=== PATIENT | female | born 1940 | race Caucasian/White ===

== ENCOUNTER 2016-04-21 13:28 | Inpatient (IN) | payer MEDICARE, MEDICAID ==
--- NOTE | 2016-04-21 14:39 | EDPRACDOC ---
- General Information Stated Complaint: AMS, BED SORE Time Seen by Provider: 04/21/16 13:37 Information Source: Family, Electronic Data Processing Auditor Mode of Arrival: Ambulance Home Medications: Home Medications Bisacodyl [Dulcolax] 10 mg MD DAILY PRN 07/07/14 Bisoprolol Fumarate [Zebeta] 5 mg PO QHS 07/07/14 House Supplement 1 each PO HS 07/07/14 Isosorbide Mononitrate [Imdur] 30 mg PO DAILY 07/07/14 Nitroglycerin [Nitrostat] 0.4 mg SL Q5MX3 PRN 07/07/14 Sennosides/Docusate Sodium [Senokot-S Tablet] 2 tabs PO HS 07/07/14 Ativan Solution 2mg/Ml 2 mg TOP QHS 05/16/15 Collagenase Clostridium Hist. [Santyl] 1 [place] TOP DAILY 05/16/15 Donepezil HCl [Aricept] 10 mg PO QHS 05/16/15 Fentanyl 12 mcg TOP Q72H 05/16/15 Memantine HCl [Namenda Xr] 14 mg PO QHS 05/16/15 Mirtazapine 15 mg PO QHS 05/16/15 Potassium Chloride [Klor-Con 10] 30 meq PO DAILY 05/16/15 Acetaminophen [Acephen] 650 mg MD Q4H PRN 04/21/16 Aspirin (Enteric Coated) [Ecotrin] 81 mg PO DAILY 04/21/16 Ativan Gel 0.5mg/Ml 0.5 mg TOP Q8H PRN 04/21/16 CYANOCOBALAMIN (Vitamin B-12) [Vitamin B-12] 1,000 mcg IM QMONTH 04/21/16 Divalproex Sodium [Depakote Sprinkle] 250 mg PO QHS 04/21/16 Divalproex Sodium [Depakote Sprinkle] 375 mg PO 1200 04/21/16 Ergocalciferol (Vitamin D2) [Vitamin D] 50,000 units PO QMONTH 04/21/16 Ferrous Sulfate [Iron] 325 mg PO BID 04/21/16 Hydrocodone Bit/Acetaminophen [[place] 5-325 Tablet] 1 tab PO Q6H PRN 04/21/16 Lactulose 30 ml PO DAILY PRN 04/21/16 Losartan Potassium 25 mg PO DAILY 04/21/16 Moxifloxacin HCl [Avelox] 400 mg PO DAILY 04/21/16 Propylene Glycol [Systane Balance] 1 drop OU TID 04/21/16 Risperidone Microspheres [Risperdal Consta] 25 mg IM .[id number] 04/21/16 Allergies/Adverse Reactions: Allergies Allergy/AdvReac Type Severity Reaction Status Date / Time acetaminophen Allergy Unknown Verified 09/08/14 16:18 [From Darvocet-N 100] codeine Allergy Unknown Verified 09/08/14 16:18 Iodinated Contrast Media - Allergy Unknown Verified 09/08/14 16:18 IV Dye Penicillins Allergy Unknown Verified 09/08/14 16:18 pravastatin sodium Allergy Unknown Verified 09/08/14 16:18 [From Pravachol] propoxyphene Allergy Unknown Verified 09/08/14 16:18 propoxyphene napsylate Allergy Unknown Verified 09/08/14 16:18 [From Darvocet-N 100] quinapril Allergy Unknown Verified 09/08/14 16:18 Sulfa (Sulfonamide Allergy Unknown Verified 09/08/14 16:18 Antibiotics) - History of Present Illness Onset: WEEKS HPI: PT HAS SORES ON HER FEET THAT HAVE BEEN THERE FOR "AWHILE." FAMILY SAID PT HAS BEEN RECEIVING ORAL ABX (AVELOX), BUT IT IS NOT HELPING. PT'S FAMILY REQUESTS THAT PT BE TRANSFERRED TO [facility] FOR EVAL BY HER FOOT DR. (DR. MANUEL SAVAGE). FAMILY SAID THAT PT HAS BEEN MORE CONFUSED AND COMBATIVE THAN NORMAL. Foot Problem Location: Reports: Right, Left Mechanism: Reports: Other (BED SORES) Circumstances: Reports: None ED Past Medical History - Patient Medical History Neurological History: Reports: Cerebrovascular Accident (11/2013), Dementia Cardiac History: Reports: Hypertension, Cardiac Catheterization GI/ History: Reports: Urinary Tract Infection, Gastroesophageal Reflux Musculoskeletal History: Reports: Osteoarthritis Psychological History: Reports: Depression. Denies: Substance Use Disorder Systemic History: Reports: Anemia, Diabetes Surgical History: Reports: Cardiac Catheterization, Tonsillectomy/Adnoidectomy - Family Medical History Reports: Diabetes (Father), Cancer (Mother of bone CA, Brother, Sister), Cardiac Disorders (Father). Denies: Hypertension, Stroke - Social Medical History Smoking Status: Former smoker Social History: Denies: Substance Use Disorder ETOH: None Substance Abuse: None Lives In: Residential Facility EDM Review of Systems - Review of Systems ROS Negative Except as Marked: Yes All systems reviewed and were negative except as marked Musculoskeletal: Foot Integumentary: Wound, Pressure Sore - Physical Exam Constitutional: No apparent distress, Agitated Oriented to: Not Oriented Last recorded Vital Signs: Last Vital Signs Temp 97.9 F 04/21/16 13:40 Pulse 52 L 04/21/16 13:40 Resp 18 04/21/16 13:40 BP 112/57 L 04/21/16 13:40 Pulse Ox 95 04/21/16 13:40 Oxygen Pulse Oxygen Saturation 95 O2 Device Room Air Oxygen Flow Rate Fraction of Inspired Oxygen ( FIO2) - HEENT Head: Normal ( normocephalic) Eye Exam: Normal (PERRL, EOMI, Sclera white) Oropharynx: Normal (Pharynx:Moist without exudate,Gums-no swelling) ENT EAC: Normal TMJ: Normal Nose: No Symptoms Reported (septum midline) Neck: Normal (FROM, trachea at midline) - Respiratory/Cardiovascular Respiratory: Normal - CTA Cardiovascular: Bradycardia - GI Auscultation: Normal (NABS) Palpation: Normal (Soft,No rebound or guarding, non distended) Tenderness: Non tender Hensley's Sign: Negative - Musculoskeletal Back: Normal (Non-Tender) Extremities: Normal (Normal tone, Pulses 2+ No cyanosis or edema, FROM) Musculoskeletal Comment: CONTRACTURES - Integumentary Skin: Warm, Dry, Other (SORES TO OUTSIDE OF BOTH FEET, CELLULITIS OF RIGHT FOOT WITH LYMPHANGITIS) Lymphatics: Lymphangitis - Neurologic Memory Impaired: Short-term, Long-term Motor Function: Other (PT NOT FOLLOWING COMMANDS) Mood Description: Agitated - Results 04/21/16 15:00 04/21/16 15:00 - EKG EKG #1 EKG Time: 13:42 -: Yes EKG interpreted by me Rate: bpm: 52 [place]: Normal Rhythm: SB Block: None Hypertrophy: None ST: Normal - Diagnostic Imaging Foot Image interpreted by: Radiologist Diagnostic Imaging Comments: LEFT: No evidence of osteomyelitis. RIGHT: Negative for osteomyelitis. Chest Image interpreted by: Radiologist Diagnostic Imaging Comments: 1. Mild interstitial prominence, new compared to the previous exams, suggesting some degree of edema, likely superimposed on some degree of chronic interstitial fibrosis/scarring. 2. No other significant findings. - Additional Information PT D/W [facility] AND THEY DID ACCEPT PT, BUT THEY WERE CONCERNED THAT MEDICARE WOULD NOT PAY FOR THE TRANSFER. THE PT'S FAMILY DID AGREE TO STAY HERE FOR NOW. - Departure Yes I personally saw and evaluated the patient. Disposition: Admit IP To This Hospital Condition: Fair Final Diagnosis: Bilateral cellulitis of lower leg, Hypernatremia, Lactic acidosis, Failure of outpatient treatment, WORSENING PRESSURE ULCERS BILAT FEET, Dehydration, Dementia Education/Counseling Given To: Family Member Education/Counseling Given Regarding: Diagnosis, Treatment Referrals: Rafa Spring MD [Primary Care Provider] - One Week Prescriptions: No Action Sennosides/Docusate Sodium [Senokot-S Tablet] 2 tabs PO HS Nitroglycerin [Nitrostat] 0.4 mg SL Q5MX3 PRN PRN Reason: Chest Pain Or Discomfort Isosorbide Mononitrate [Imdur] 30 mg PO DAILY Bisoprolol Fumarate [Zebeta] 5 mg PO QHS Bisacodyl [Dulcolax] 10 mg MD DAILY PRN PRN Reason: Constipation House Supplement 1 each PO HS Mirtazapine 15 mg PO QHS Memantine HCl [Namenda Xr] 14 mg PO QHS Potassium Chloride [Klor-Con 10] 30 meq PO DAILY Fentanyl 12 mcg TOP Q72H Ativan Solution 2mg/Ml 2 mg TOP QHS Donepezil HCl [Aricept] 10 mg PO QHS Collagenase Clostridium Hist. [Santyl] 1 [place] TOP DAILY Aspirin (Enteric Coated) [Ecotrin] 81 mg PO DAILY Risperidone Microspheres [Risperdal Consta] 25 mg IM .[id number] Lactulose 30 ml PO DAILY PRN PRN Reason: Constipation Ergocalciferol (Vitamin D2) [Vitamin D] 50,000 units PO QMONTH Hydrocodone Bit/Acetaminophen [[place] 5-325 Tablet] 1 tab PO Q6H PRN PRN Reason: Pain Ferrous Sulfate [Iron] 325 mg PO BID Propylene Glycol [Systane Balance] 1 drop OU TID CYANOCOBALAMIN (Vitamin B-12) [Vitamin B-12] 1,000 mcg IM QMONTH Moxifloxacin HCl [Avelox] 400 mg PO DAILY Divalproex Sodium [Depakote Sprinkle] 375 mg PO 1200 Ativan Gel 0.5mg/Ml 0.5 mg TOP Q8H PRN PRN Reason: AGITATION Losartan Potassium 25 mg PO DAILY Divalproex Sodium [Depakote Sprinkle] 250 mg PO QHS Acetaminophen [Acephen] 650 mg MD Q4H PRN PRN Reason: Mild Pain Or Fever Decision to Admit Time: 16:39 Decision to admit date: 04/21/16 Decision to admit: from ED - Physician Consulted Hospitalist Provider Called: Rafa Spring
--- NOTE | 2016-04-21 15:14 | DIRPT ---
CLINICAL DATA: Ulcers. EXAM: LEFT FOOT - COMPLETE 3+ VIEW COMPARISON: None. FINDINGS: Diffuse osteopenia limits evaluation. No fractures are seen. No bony erosion to suggest osteomyelitis. IMPRESSION: No evidence of osteomyelitis. Electronically Signed By: Casa Fonseca III, M.D On: 04/21/2016 15:12
--- NOTE | 2016-04-21 15:16 | DIRPT ---
CLINICAL DATA: Mental status change. Dementia. Right foot ulcer. EXAM: CHEST 1 VIEW COMPARISON: Chest x-rays dated 07/07/2014 and 06/11/2014. FINDINGS: Heart size is upper normal, stable. Overall cardiomediastinal silhouette is stable in size and configuration. Mildly prominent interstitial markings are now present, suggesting some degree of edema. No confluent airspace opacity to suggest developing pneumonia. No pleural effusion seen. No pneumothorax seen. IMPRESSION: 1. Mild interstitial prominence, new compared to the previous exams, suggesting some degree of edema, likely superimposed on some degree of chronic interstitial fibrosis/scarring. 2. No other significant findings. Electronically Signed By: Misbah Machado M.D. On: 04/21/2016 15:13
--- NOTE | 2016-04-21 15:20 | DIRPT ---
CLINICAL DATA: Foot infection EXAM: RIGHT FOOT COMPLETE - 3+ VIEW COMPARISON: 05/16/2015 FINDINGS: Ulcer adjacent to the fifth MTP joint. Negative for osteomyelitis or fracture. Mild degenerative change first MTP joint. Generalized osteopenia. IMPRESSION: Negative for osteomyelitis. Electronically Signed By: Bobby Roland M.D. On: 04/21/2016 15:18
[2016-04-21 15:29] LABS: AUTOMATED BASOPHIL 0.3 % (0-2); AUTOMATED EOSINOPHIL 0.1 % (0-5); AUTOMATED LYMPH 20.1 % (17-44); AUTOMATED MONOCYTE 10.9 % (3-10); AUTOMATED NEUTROPHIL 68.6 % (45-76); MPV 8.7 fL (7.4-10.4)
[2016-04-21 15:40] LABS: BLOOD UREA NITROGEN 31 MG/DL (7-17); CALCIUM 9.8 MG/DL (8.4-10.2); CALCULATED OSMOLALITY 298 MOs/Kg (270-290); CHLORIDE 110 mEq/L (98-107); GLUCOSE 119 mg/dL (70-99); PARTIAL THROMB. TIME 23.1 SEC (22-35); PT-INR 1.2; SODIUM LEVEL 151 mEq/L (137-146); TOTAL PROTEIN 7.9 G/DL (6.3-8.2)
[2016-04-21 15:41] LABS: LEUKOCYTES/URINE NEG (NEGATIVE); NITRITE/URINE NEG (NEGATIVE); URINE OCCULT BLOOD NEG (NEG/TRACE)
[2016-04-21] MEDS ORDERED: NS 1,000 ML IV ONE (16:04)
[2016-04-21] MEDS ORDERED: DEXTROSE 25 GM/50 ML PFS IV PRN (16:57)
[2016-04-21] MEDS ORDERED: GLUCAGON 1 MG VIAL SQ PRN (16:57)
[2016-04-21] MEDS ORDERED: GLUCOSE (ORAL GEL) 15 GM TUBE PO PRN (16:57)
[2016-04-21] MEDS ORDERED: HYDROCODONE 5 MG/ACETAMIN 325 MG TAB PO PRN (17:01)
[2016-04-21] MEDS ORDERED: ATIVAN TOP PRN (17:01)
[2016-04-21] MEDS ORDERED: NITROGLYCERINE 0.4 MG TAB SL PRN (17:01)
[2016-04-21] MEDS ORDERED: BISACODYL 10 MG SUPP PR PRN (17:01)
[2016-04-21] MEDS ORDERED: HALOPERIDOL 5 MG/ML VIAL IV PRN (17:10)
--- NOTE | 2016-04-21 17:18 | HISTPHYS ---
- Chief Complaint Swelling ,redness and cloudy discharge from lateral aspects of both feet - History of Present Illness 75 yowf suffering from end-stage dementia, full-time resident of senior living facility brought to to emergency room early on today for evaluation of bilateral lateral aspect of both feet ulcers with cloudy discharge warmth redness and edema and tenderness.. About a week ago patient has developed ulcers on both lateral aspects of both feet with minimal initial drainage and redness. She was started on 10 days course of antibiotic in the form of p.o. Avelox. Of note is that previous attempts to provide IV medications or IV hydration at the long term resulted in patient removing IV access almost instantly. Despite being on antibiotic for about a week there was no significant improvement in feet condition, redness and discharge have worsened. Option of inserting PICC line versus admitted to the hospital for IV antibiotics will presented to the patient family and given complicated experience with IV access patient was transferred to [facility] for further evaluation and treatment. Patient is non ambulatory and gets transfer to wheelchair and is able to propel herself around the institution. No recent falls or trauma to lower extremities. Patient remains total care dependent with all activities of daily living, despite nutritional support patient continues to lose weight. - Medical History Cardiac History: Reports: Hypertension, Cardiac Catheterization, Valvular Heart Disease Respiratory History: Reports: Pneumonia GI/ History: Reports: Renal Disease, Urinary Tract Infection, Gastroesophageal Reflux Musculoskeletal History: Reports: Osteoarthritis Systemic History: Reports: Anemia, Diabetes Neurological History: Reports: Cerebrovascular Accident (11/2013), Dementia Psychological History: Reports: Depression. Denies: Substance Use Disorder - Surgical History Reports: Cardiac Catheterization, Tonsillectomy/Adnoidectomy - Medictions/Allergies Allergies acetaminophen [From Darvocet-N 100] Allergy (Verified 09/08/14 16:18) Unknown Per [facility] codeine Allergy (Verified 09/08/14 16:18) Unknown Per [facility] Iodinated Contrast Media - IV Dye Allergy (Verified 09/08/14 16:18) Unknown Per [facility] Penicillins Allergy (Verified 09/08/14 16:18) Unknown Per [facility] pravastatin sodium [From Pravachol] Allergy (Verified 09/08/14 16:18) Unknown Per [facility] propoxyphene Allergy (Verified 09/08/14 16:18) Unknown Per [facility] propoxyphene napsylate [From Darvocet-N 100] Allergy (Verified 09/08/14 16:18) Unknown Per [facility] quinapril Allergy (Verified 09/08/14 16:18) Unknown Per [facility] Sulfa (Sulfonamide Antibiotics) Allergy (Verified 09/08/14 16:18) Unknown Per [facility] Current Medication List: Reviewed Home Medications Bisacodyl [Dulcolax] 10 mg MI DAILY PRN 07/07/14 Bisoprolol Fumarate [Zebeta] 5 mg PO QHS 07/07/14 House Supplement 1 each PO HS 07/07/14 Isosorbide Mononitrate [Imdur] 30 mg PO DAILY 07/07/14 Nitroglycerin [Nitrostat] 0.4 mg SL Q5MX3 PRN 07/07/14 Sennosides/Docusate Sodium [Senokot-S Tablet] 2 tabs PO HS 07/07/14 Ativan Solution 2mg/Ml 2 mg TOP QHS 05/16/15 Collagenase Clostridium Hist. [Santyl] 1 [place] TOP DAILY 05/16/15 Donepezil HCl [Aricept] 10 mg PO QHS 05/16/15 Fentanyl 12 mcg TOP Q72H 05/16/15 Memantine HCl [Namenda Xr] 14 mg PO QHS 05/16/15 Mirtazapine 15 mg PO QHS 05/16/15 Potassium Chloride [Klor-Con 10] 30 meq PO DAILY 05/16/15 Acetaminophen [Acephen] 650 mg MI Q4H PRN 04/21/16 Aspirin (Enteric Coated) [Ecotrin] 81 mg PO DAILY 04/21/16 Ativan Gel 0.5mg/Ml 0.5 mg TOP Q8H PRN 04/21/16 CYANOCOBALAMIN (Vitamin B-12) [Vitamin B-12] 1,000 mcg IM QMONTH 04/21/16 Divalproex Sodium [Depakote Sprinkle] 250 mg PO QHS 04/21/16 Divalproex Sodium [Depakote Sprinkle] 375 mg PO 1200 04/21/16 Ergocalciferol (Vitamin D2) [Vitamin D] 50,000 units PO QMONTH 04/21/16 Ferrous Sulfate [Iron] 325 mg PO BID 04/21/16 Hydrocodone Bit/Acetaminophen [[place] 5-325 Tablet] 1 tab PO Q6H PRN 04/21/16 Lactulose 30 ml PO DAILY PRN 04/21/16 Losartan Potassium 25 mg PO DAILY 04/21/16 Moxifloxacin HCl [Avelox] 400 mg PO DAILY 04/21/16 Propylene Glycol [Systane Balance] 1 drop OU TID 04/21/16 Risperidone Microspheres [Risperdal Consta] 25 mg IM .[id number] 04/21/16 - Family History Reports: Diabetes (Father), Cancer (Mother of bone CA, Brother, Sister), Cardiac Disorders (Father). Denies: Hypertension, Stroke - Social History Travel Outside of [place] in the Last 3 Months?: No Lives: in [facility] Smoking Status: Former smoker Social History: Denies: Other Substance Use - Review of Systems Yes Review of systems cannot be obtained due to the patient's medical condition (End-stage dementia) - Physical Exam Vital Signs: Initial Vitals Temperature 97.9 F 04/21/16 13:40 Pulse Rate 52 L 04/21/16 13:40 Respiratory Rate 18 04/21/16 13:40 Blood Pressure 112/57 L 04/21/16 13:40 Pulse Oxygen Saturation 95 04/21/16 13:40 Constitutional: Cachectic, Confused, Decreased Consciousness, Other (Frail) Oriented to: Not Oriented - HEENT Head: Normal Eye: Normal Oropharynx: Normal, Membranes Dry ENT EAC: Normal TMJ: Normal Nose: No Symptoms Reported Respiratory: Diminished, Rhonchi Cardiovascular: Normal, Systolic murmur - GI Auscultation: Normal Palpation: Normal Tenderness: Non tender Rectal Exam: Deferred - Exam Deferred: Yes - Musculoskeletal Back: Lumbar Step-off Extremities: Cyanosis, Other (On the right and on the left lateral aspect of each foot there is ulceration surrounded by the redness and edema) Spine: limited range of motion - Integumentary Skin: Warm, Cool, Dry Lymphatics: Normal - Neurologic Memory Impaired: Short-term, Long-term Motor Function: Abnormal Cranial Nerve: Normal Cerebellar: Unable to Test Mood Description: Depressed Thought: Other Perception: Other - Focused CV Perfusion Exam Vital Signs: Last Vital Signs Temp 97.9 F 04/21/16 15:15 Pulse 88 04/21/16 15:15 Resp 18 04/21/16 15:15 BP 122/54 L 04/21/16 15:15 Pulse Ox 99 04/21/16 15:15 - Diagnostic Findings Allergies acetaminophen [From Darvocet-N 100] Allergy (Verified 09/08/14 16:18) Unknown Per [facility] codeine Allergy (Verified 09/08/14 16:18) Unknown Per [facility] Iodinated Contrast Media - IV Dye Allergy (Verified 09/08/14 16:18) Unknown Per [facility] Penicillins Allergy (Verified 09/08/14 16:18) Unknown Per [facility] pravastatin sodium [From Pravachol] Allergy (Verified 09/08/14 16:18) Unknown Per [facility] propoxyphene Allergy (Verified 09/08/14 16:18) Unknown Per [facility] propoxyphene napsylate [From Darvocet-N 100] Allergy (Verified 09/08/14 16:18) Unknown Per [facility] quinapril Allergy (Verified 09/08/14 16:18) Unknown Per [facility] Sulfa (Sulfonamide Antibiotics) Allergy (Verified 09/08/14 16:18) Unknown Per [facility] 04/21/16 15:00 04/21/16 15:00 Last Vital Signs Temp 97.9 F 04/21/16 15:15 Pulse 88 04/21/16 15:15 Resp 18 04/21/16 15:15 BP 122/54 L 04/21/16 15:15 Pulse Ox 99 04/21/16 15:15 Patient Name: BRIDGET CH LOC: ED : 1940 AGE: 75 Order Date:04/21/16 Date of Service:08/30 Report # [id number] Ord Physician: Devorah Patel MD Exam # [id number] Emergency Physician: Devorah Patel MD Exam(s): [id number] RAD/DG CHEST 1V CLINICAL DATA: Mental status change. Dementia. Right foot ulcer. EXAM: CHEST 1 VIEW COMPARISON: Chest x-rays dated 07/07/2014 and 06/11/2014. FINDINGS: Heart size is upper normal, stable. Overall cardiomediastinal silhouette is stable in size and configuration. Mildly prominent interstitial markings are now present, suggesting some degree of edema. No confluent airspace opacity to suggest developing pneumonia. No pleural effusion seen. No pneumothorax seen. IMPRESSION: 1. Mild interstitial prominence, new compared to the previous exams, suggesting some degree of edema, likely superimposed on some degree of chronic interstitial fibrosis/scarring. 2. No other significant findings. Electronically Signed By: Misbah Machado M.D. On: 04/21/2016 15:13 Patient Name: BRIDGET CH LOC: ED : 1940 AGE: 75 Order Date:04/21/16 Date of Service:08/30 Report # [id number] Ord Physician: Devorah Patel MD Exam # [id number] Emergency Physician: Devorah Patel MD Exam(s): [id number] RAD/DG FOOT COMPLETE 3+V-L CLINICAL DATA: Ulcers. EXAM: LEFT FOOT - COMPLETE 3+ VIEW COMPARISON: None. FINDINGS: Diffuse osteopenia limits evaluation. No fractures are seen. No bony erosion to suggest osteomyelitis. IMPRESSION: No evidence of osteomyelitis. Electronically Signed By: Casa Fonseca III, M.D On: 04/21/2016 15:12 Patient Name: BRIDGET CH LOC: ED : 1940 AGE: 75 Order Date:04/21/16 Date of Service:08/30 Report # [id number] Ord Physician: Devorah Patel MD Exam # [id number] Emergency Physician: Devorah Patel MD Exam(s): [id number] RAD/DG FOOT COMPLETE 3+V-R CLINICAL DATA: Foot infection EXAM: RIGHT FOOT COMPLETE - 3+ VIEW COMPARISON: 05/16/2015 FINDINGS: Ulcer adjacent to the fifth MTP joint. Negative for osteomyelitis or fracture. Mild degenerative change first MTP joint. Generalized osteopenia. IMPRESSION: Negative for osteomyelitis. Electronically Signed By: Bobby Roland M.D. On: 04/21/2016 15:18 - Assessment (1) Bilateral cellulitis of lower leg L03.116 - CELLULITIS OF LEFT LOWER LIMB; L03.115 - CELLULITIS OF RIGHT LOWER LIMB Acute Present on Admission: Yes Patient will be admitted to monitored medical bed. Treatment of IV antibiotics in the form of vancomycin and clindamycin will be instituted. She will be seen evaluated by surgery and wound care services. (2) Skin ulcers of both feet L97.519 - NON-PRS CHRONIC ULCER OTH PRT RIGHT FOOT W UNSP SEVERITY; L97.529 - NON-PRESSURE CHRONIC ULCER OTH PRT LEFT FOOT W UNSP SEVERITY Acute Present on Admission: Yes Continue local wound care and nutritional support (3) Dehydration E86.0 - DEHYDRATION Acute Present on Admission: Yes IV hydration in the form of D5 half normal saline will be provided. (4) Dementia F03.90 - UNSPECIFIED DEMENTIA WITHOUT BEHAVIORAL DISTURBANCE Chronic Present on Admission: Yes Qualifiers: Dementia type: Alzheimer's disease Alzheimer's disease onset: late-onset Dementia behavioral disturbance: with behavioral disturbance Qualified Code(s) : G30.1 - Alzheimer's disease with late onset; F02.81 - Dementia in other diseases classified elsewhere with behavioral disturbance With psychosis and outbursts of anger and agitation. Continue current medical therapy patient at high risk for inpatient delirium and may require chemical and or physical restraints for safety (5) Hypernatremia E87.0 - HYPEROSMOLALITY AND HYPERNATREMIA Acute Present on Admission: Yes IV fluids as outlined above. (6) Lactic acidosis E87.2 - ACIDOSIS Acute Present on Admission: Yes Secondary to #1., continue IV fluids and IV antibiotics (7) Peripheral vascular disease I73.9 - PERIPHERAL VASCULAR DISEASE, UNSPECIFIED Chronic Present on Admission: Yes Continue aspirin (8) Failure to thrive ABC6899 - Chronic Present on Admission: Yes Qualifiers: Failure to thrive age range: in adult Qualified Code(s): R62.7 - Adult failure to thrive Continue nutritional support. 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 Case Care Discussed with: Patient, Consultants, Nursing Staff, Director Total Time: 60 min . Critical Care: No Code: 10396
[2016-04-21] MEDS ORDERED: ACETAMINOPHEN 650 MG SUPP PR PRN (17:45)
[2016-04-21] MEDS ORDERED: COLLAGENASE OINTMENT 30 GM TUBE TOP SCH (18:00)
[2016-04-21] MEDS ORDERED: HALOPERIDOL 5 MG/ML VIAL IM PRN (18:09)
[2016-04-21] MEDS ORDERED: LORAZEPAM 2 MG/ML VIAL IV PRN (18:10)
[2016-04-21] MEDS: REGULAR INSULIN 100 UNITS/ML - 3 ML VIAL SQ SCH (18:30)
[2016-04-21] MEDS: Clindamycin 600 mg/D5W 50 ml 600 MG/50 ML IVB IV SCH (19:35)
[2016-04-21] MEDS: ENOXAPARIN 40 MG/0.4 ML PFS SQ SCH (19:36)
[2016-04-21] MEDS: D5W-1/2NS 1,000 ML IV SCH (19:37)
[2016-04-21] MEDS ORDERED: LORAZEPAM 2 MG/ML VIAL IV SCH (21:00)
[2016-04-21] MEDS ORDERED: ATIVAN TOP SCH (21:00)
[2016-04-21] MEDS ORDERED: MIRTAZAPINE 15 MG TAB PO SCH (21:00)
[2016-04-21] MEDS ORDERED: SUPPLEMENT PO SCH (21:00)
[2016-04-21] MEDS ORDERED: Vaccine Screening Complete SCH (22:00)
[2016-04-21] MEDS: DONEPEZIL HCL 10 MG TAB PO SCH (23:14)
[2016-04-21] MEDS: ARTIFICIAL TEARS OPH SOLN 15 ML OU SCH (23:15)
[2016-04-21] MEDS: DIVALPROEX SODIUM 125 MG CAP PO SCH (23:16)
[2016-04-21] MEDS: MEMANTINE 5 MG TAB PO SCH (23:17)
[2016-04-21] MEDS: DOCUSATE-SENNA CONCENTRATE TAB PO SCH (23:17)
[2016-04-22] MEDS: REGULAR INSULIN 100 UNITS/ML - 3 ML VIAL SQ SCH ×5 (01:02→23:03)
[2016-04-22] MEDS: Clindamycin 600 mg/D5W 50 ml 600 MG/50 ML IVB IV SCH ×5 (01:04→23:00)
[2016-04-22] MEDS: ARTIFICIAL TEARS OPH SOLN 15 ML OU SCH ×3 (05:22→20:43)
[2016-04-22 07:30] LABS: BLOOD UREA NITROGEN 25 MG/DL (7-17); CALCIUM 8.5 MG/DL (8.4-10.2); CALCULATED OSMOLALITY 280 MOs/Kg (270-290); CHLORIDE 113 mEq/L (98-107); GLUCOSE 110 mg/dL (70-99); SODIUM LEVEL 143 mEq/L (137-146)
[2016-04-22] MEDS ORDERED: LOSARTAN POTASSIUM 25 MG TAB PO SCH (09:00)
[2016-04-22] MEDS ORDERED: LACTULOSE 20 GM/30 ML ORAL SOLN PO PRN (09:00)
[2016-04-22] MEDS: MEMANTINE 5 MG TAB PO SCH ×2 (10:32→20:02)
[2016-04-22] MEDS: ISOSORBIDE MONONITRATE 30 MG TAB PO SCH (10:33)
[2016-04-22] MEDS: FENTANYL 12 MCG PATCH TOP SCH (11:29)
[2016-04-22] MEDS: COLLAGENASE OINTMENT 30 GM TUBE TOP SCH ×2 (11:30→18:33)
[2016-04-22] MEDS: DIVALPROEX SODIUM 125 MG CAP PO SCH ×2 (11:31→20:02)
[2016-04-22] MEDS: FERROUS SULFATE 324 MG TAB PO SCH ×2 (11:31→16:42)
[2016-04-22] MEDS: POTASSIUM CHLORIDE 10 MEQ TABLET PO SCH (11:31)
[2016-04-22] MEDS ORDERED: RISPERIDONE MICROSPHERES 25 MG IM ONE (13:00)
[2016-04-22] MEDS ORDERED: Medication Hold Instructions SCH (16:00)
--- NOTE | 2016-04-22 17:46 | GENMEDPROG ---
Subjective Note: Patient in bed, confused and sleepy. No anger agitation or hostility. Pulmonary status stable Notes Reviewed: Yes: Events from last night noted and discussed with Clinical Staff Current Medication List: Reviewed Currently: Reports: Reflux Sx DVT Prophylaxis: Yes - Physical Examination Vital Signs and I&O: Last Vital Signs Temp 98.8 F 04/22/16 14:20 Pulse 51 L 04/22/16 14:20 Resp 20 04/22/16 14:20 BP 128/50 L 04/22/16 14:20 Pulse Ox 96 04/22/16 14:20 Oxygen Pulse Oxygen Saturation 96 O2 Device Room Air Oxygen Flow Rate Fraction of Inspired Oxygen ( FIO2) Intake & Output 04/19/16 04/20/16 04/21/16 04/22/16 23:59 23:59 23:59 23:59 Intake Total 350 883 Balance 350 883 Patient's weight 43.817 kg 44.934 kg General: Weakness, Fatigue HEENT: Normal, PERRLA, EOMI, Anicteric Sclera Neck: Non-tender, Limited range of motion Lymphatics: Normal Respiratory: Diminished, Rhonchi Cardiovascular: Regular rate, Normal S1, Normal S2, Murmurs GI: Normal bowel sounds, Soft, Non tender, No hepatospenomegaly, No masses Extremities/Musculoskeletal: Clubbing, Cyanosis, DJD Skin: No rashes, No significant lesion Neurological: Somnolent Psych/Mental Status: Confused Lab/DI/Studies Reviewed: Allergies acetaminophen [From Darvocet-N 100] Allergy (Verified 09/08/14 16:18) Unknown Per [facility] codeine Allergy (Verified 09/08/14 16:18) Unknown Per [facility] Iodinated Contrast Media - IV Dye Allergy (Verified 09/08/14 16:18) Unknown Per [facility] Penicillins Allergy (Verified 09/08/14 16:18) Unknown Per [facility] pravastatin sodium [From Pravachol] Allergy (Verified 09/08/14 16:18) Unknown Per [facility] propoxyphene Allergy (Verified 09/08/14 16:18) Unknown Per [facility] propoxyphene napsylate [From Darvocet-N 100] Allergy (Verified 09/08/14 16:18) Unknown Per [facility] quinapril Allergy (Verified 09/08/14 16:18) Unknown Per [facility] Sulfa (Sulfonamide Antibiotics) Allergy (Verified 09/08/14 16:18) Unknown Per [facility] 04/21/16 15:00 04/22/16 06:38 Microbiology 04/21/16 15:13 Urine - In/Out Catheter Urine Culture - Final No growth <10,00O CFU/ml Last Vital Signs Temp 98.8 F 04/22/16 14:20 Pulse 51 L 04/22/16 14:20 Resp 20 04/22/16 14:20 BP 128/50 L 04/22/16 14:20 Pulse Ox 96 04/22/16 14:20 - Assessment (1) Bilateral cellulitis of lower leg Acute L03.116 - CELLULITIS OF LEFT LOWER LIMB; L03.115 - CELLULITIS OF RIGHT LOWER LIMB Comment/Plan: Continue IV antibiotics in the form of vancomycin and clindamycin (2) Skin ulcers of both feet Acute L97.519 - NON-PRS CHRONIC ULCER OTH PRT RIGHT FOOT W UNSP SEVERITY; L97.529 - NON-PRESSURE CHRONIC ULCER OTH PRT LEFT FOOT W UNSP SEVERITY Comment /Plan: Continue local wound care and nutritional support (3) Dehydration Acute E86.0 - DEHYDRATION Comment/Plan: Continue IV hydration in the form of D5 half normal saline will be provided. (4) Dementia Chronic F03.90 - UNSPECIFIED DEMENTIA WITHOUT BEHAVIORAL DISTURBANCE Qualifiers: Dementia type: Alzheimer's disease Alzheimer's disease onset: late-onset Dementia behavioral disturbance: with behavioral disturbance Qualified Code(s) : G30.1 - Alzheimer's disease with late onset; F02.81 - Dementia in other diseases classified elsewhere with behavioral disturbance Comment/Plan: Will adjust medications given significant obtundation (5) Hypernatremia Acute E87.0 - HYPEROSMOLALITY AND HYPERNATREMIA Comment/Plan: IV fluids as outlined above. (6) Lactic acidosis Acute E87.2 - ACIDOSIS Comment/Plan: Secondary to #1., continue IV fluids and IV antibiotics (7) Peripheral vascular disease Chronic I73.9 - PERIPHERAL VASCULAR DISEASE, UNSPECIFIED Comment/Plan: Continue aspirin (8) Failure to thrive Chronic [id number] - Qualifiers: Failure to thrive age range: in adult Qualified Code(s): R62.7 - Adult failure to thrive Comment/Plan: Continue nutritional support. (9) Senile debility Chronic R54 - AGE-RELATED PHYSICAL DEBILITY Comment/Plan: Assist with ADLs and with transfers. Case Care Discussed with: Patient, Family, Nursing Staff, Press Clippings Cutter And Paster Education/Counseling Given To: Patient Education/Counseling Given Regarding: Diagnosis, Treatment, Prognosis, Follow Up Total Time: 45 min . Critical Care: No Code: 25661 (12+)
[2016-04-22] MEDS: D5W-1/2NS 1,000 ML IV SCH (18:23)
[2016-04-22] MEDS: ENOXAPARIN 40 MG/0.4 ML PFS SQ SCH (18:24)
[2016-04-22] MEDS ORDERED: RISPERIDONE MICROSPHERES 25 MG IM SCH (20:00)
[2016-04-22] MEDS: DONEPEZIL HCL 10 MG TAB PO SCH (20:02)
[2016-04-22] MEDS: DOCUSATE-SENNA CONCENTRATE TAB PO SCH (20:03)
[2016-04-23] MEDS: Clindamycin 600 mg/D5W 50 ml 600 MG/50 ML IVB IV SCH ×4 (04:48→22:54)
[2016-04-23] MEDS: ARTIFICIAL TEARS OPH SOLN 15 ML OU SCH ×4 (04:48→19:43)
[2016-04-23] MEDS: REGULAR INSULIN 100 UNITS/ML - 3 ML VIAL SQ SCH ×3 (05:43→17:36)
[2016-04-23 06:39] LABS: BLOOD UREA NITROGEN 14 MG/DL (7-17); CALCIUM 8.1 MG/DL (8.4-10.2); CALCULATED OSMOLALITY 270 MOs/Kg (270-290); CHLORIDE 108 mEq/L (98-107); GLUCOSE 97 mg/dL (70-99); SODIUM LEVEL 140 mEq/L (137-146)
[2016-04-23] MEDS: ISOSORBIDE MONONITRATE 30 MG TAB PO SCH ×2 (07:34→07:59)
[2016-04-23] MEDS: MEMANTINE 5 MG TAB PO SCH ×3 (07:34→19:45)
[2016-04-23] MEDS: COLLAGENASE OINTMENT 30 GM TUBE TOP SCH (08:00)
[2016-04-23] MEDS: D5W-1/2NS 1,000 ML IV SCH ×2 (09:20→15:41)
[2016-04-23] MEDS: DIVALPROEX SODIUM 125 MG CAP PO SCH ×3 (11:20→19:45)
[2016-04-23] MEDS: POTASSIUM CHLORIDE 10 MEQ TABLET PO SCH ×2 (11:21→11:29)
--- NOTE | 2016-04-23 11:28 | PCM.SURGCO ---
Consultation Date: 04/22/16 Requesting Physician: Rafa Spring Lap [employer]: [facility] Consult Reason: Wound - History of Present Illness 75 YO WF with underlying dementia who is non ambulatory, comes in for IV antibiotics for her underlying wounds on her feet. Patient had developed ulcerations on lateral aspect of both feet and was started on PO antibiotics but failed outpatient regimen. She started having more discharge and was brought for inpatient therapy. Chief Complaint: Swelling ,redness and cloudy discharge from lateral aspects of both feet - Past Medical and Surgical History Cardiac History: Reports: Hypertension, Cardiac Catheterization, Valvular Heart Disease Respiratory History: Reports: Pneumonia GI/ History: Reports: Renal Disease, Urinary Tract Infection, Gastroesophageal Reflux Systemic History: Reports: Anemia, Diabetes Musculoskeletal History: Reports: Osteoarthritis Psychological History: Reports: Depression. Denies: Substance Use Disorder Neurological History: Reports: Cerebrovascular Accident (11/2013), Dementia Past Surgical History: Reports: Cardiac Catheterization, Tonsillectomy/ Adnoidectomy Allergies acetaminophen [From Darvocet-N 100] Allergy (Verified 09/08/14 16:18) Unknown Per [facility] codeine Allergy (Verified 09/08/14 16:18) Unknown Per [facility] Iodinated Contrast Media - IV Dye Allergy (Verified 09/08/14 16:18) Unknown Per [facility] MAR Penicillins Allergy (Verified 09/08/14 16:18) Unknown Per [facility] pravastatin sodium [From Pravachol] Allergy (Verified 09/08/14 16:18) Unknown Per [facility] propoxyphene Allergy (Verified 09/08/14 16:18) Unknown Per [facility] propoxyphene napsylate [From Darvocet-N 100] Allergy (Verified 09/08/14 16:18) Unknown Per [facility] MAR quinapril Allergy (Verified 09/08/14 16:18) Unknown Per [facility] Sulfa (Sulfonamide Antibiotics) Allergy (Verified 09/08/14 16:18) Unknown Per [facility] MAR Home Medications Bisacodyl [Dulcolax] 10 mg RI DAILY PRN 07/07/14 Bisoprolol Fumarate [Zebeta] 5 mg PO QHS 07/07/14 House Supplement 1 each PO HS 07/07/14 Isosorbide Mononitrate [Imdur] 30 mg PO DAILY 07/07/14 Nitroglycerin [Nitrostat] 0.4 mg SL Q5MX3 PRN 07/07/14 Sennosides/Docusate Sodium [Senokot-S Tablet] 2 tabs PO HS 07/07/14 Ativan Solution 2mg/Ml 2 mg TOP QHS 05/16/15 Collagenase Clostridium Hist. [Santyl] 1 [place] TOP DAILY 05/16/15 Donepezil HCl [Aricept] 10 mg PO QHS 05/16/15 Fentanyl 12 mcg TOP Q72H 05/16/15 Memantine HCl [Namenda Xr] 14 mg PO QHS 05/16/15 Mirtazapine 15 mg PO QHS 05/16/15 Potassium Chloride [Klor-Con 10] 30 meq PO DAILY 05/16/15 Acetaminophen [Acephen] 650 mg RI Q4H PRN 04/21/16 Aspirin (Enteric Coated) [Ecotrin] 81 mg PO DAILY 04/21/16 Ativan Gel 0.5mg/Ml 0.5 mg TOP Q8H PRN 04/21/16 CYANOCOBALAMIN (Vitamin B-12) [Vitamin B-12] 1,000 mcg IM QMONTH 04/21/16 Divalproex Sodium [Depakote Sprinkle] 250 mg PO QHS 04/21/16 Divalproex Sodium [Depakote Sprinkle] 375 mg PO 1200 04/21/16 Ergocalciferol (Vitamin D2) [Vitamin D] 50,000 units PO QMONTH 04/21/16 Ferrous Sulfate [Iron] 325 mg PO BID 04/21/16 Hydrocodone Bit/Acetaminophen [[place] 5-325 Tablet] 1 tab PO Q6H PRN 04/21/16 Lactulose 30 ml PO DAILY PRN 04/21/16 Losartan Potassium 25 mg PO DAILY 04/21/16 Moxifloxacin HCl [Avelox] 400 mg PO DAILY 04/21/16 Propylene Glycol [Systane Balance] 1 drop OU TID 04/21/16 Risperidone Microspheres [Risperdal Consta] 25 mg IM .[id number] 04/21/16 - Social History Travel Outside of [place] in the Last 3 Months?: No Lives: in Group Home/SNF Smoking Status: Former smoker Social History: Denies: Other Substance Use - Family History Reports: Diabetes (Father), Cancer (Mother of bone CA, Brother, Sister), Cardiac Disorders (Father). Denies: Hypertension, Stroke - Review of Systems Yes Review of systems cannot be obtained due to the patient's medical condition (dementia) - Physical Exam Vital Signs: Initial Vitals Temperature 97.9 F 04/21/16 13:40 Pulse Rate 52 L 04/21/16 13:40 Respiratory Rate 18 04/21/16 13:40 Blood Pressure 112/57 L 04/21/16 13:40 Pulse Oxygen Saturation 95 04/21/16 13:40 Constitutional: No apparent distress Oriented to: Unable to Test - HEENT Head: Normal. negative: Laceration, Swelling Eye: negative: Edema, Scleral Icterus Respiratory: Diminished, Rhonchi Cardiovascular: Systolic murmur. negative: Irregular - GI Palpation: Normal Tenderness: Non tender - Musculoskeletal Extremities: Other (ulcerationa and erythema on lateral aspect of both feet.). negative: Edema, Pedal Pulse - Integumentary Skin: Warm, Dry - Lab Results 04/24/16 05:45 04/24/16 05:45 - Assessment/Plan (1) Skin ulcers of both feet L97.519 - NON-PRS CHRONIC ULCER OTH PRT RIGHT FOOT W UNSP SEVERITY; L97.529 - NON-PRESSURE CHRONIC ULCER OTH PRT LEFT FOOT W UNSP SEVERITY Chronic Present on Admission: Yes (2) Bilateral cellulitis of lower leg L03.116 - CELLULITIS OF LEFT LOWER LIMB; L03.115 - CELLULITIS OF RIGHT LOWER LIMB Acute Present on Admission: Yes (3) Failure of outpatient treatment Z78.9 - OTHER SPECIFIED HEALTH STATUS Acute Present on Admission: Yes (4) Dementia F03.90 - UNSPECIFIED DEMENTIA WITHOUT BEHAVIORAL DISTURBANCE Chronic Present on Admission: Yes Alzheimer's disease late-onset with behavioral disturbance G30.1 - Alzheimer's disease with late onset; F02.81 - Dementia in other diseases classified elsewhere with behavioral disturbance (5) Diabetes mellitus type II, uncontrolled E11.65 - TYPE 2 DIABETES MELLITUS WITH HYPERGLYCEMIA Chronic Present on Admission: Yes (6) Coronary artery disease I25.10 - ATHSCL HEART DISEASE OF [place] CORONARY ARTERY W/O ANG PCTRS Chronic Present on Admission: Yes [place] artery [place] heart without angina I25.10 - Atherosclerotic heart disease of [place] coronary artery without angina pectoris (7) Peripheral vascular disease I73.9 - PERIPHERAL VASCULAR DISEASE, UNSPECIFIED Chronic Present on Admission: Yes Plan: Agree with IV antibiotics. Would use Collagenase for wounds to debride these areas. No surgical intervention at this time.
[2016-04-23] MEDS: FERROUS SULFATE 324 MG TAB PO SCH ×2 (11:29→18:01)
--- NOTE | 2016-04-23 13:11 | GENMEDPROG ---
Subjective Note: Patient in bed. Confused and disoriented but more interactive and alert today. Follows simple commands. P.o. intake very poor. Occasional episodes of agitation. Notes Reviewed: Yes: Events from last night noted and discussed with Clinical Staff Current Medication List: Reviewed Currently: Reports: Cough, Reflux Sx DVT Prophylaxis: Yes - Physical Examination Vital Signs and I&O: Last Vital Signs Temp 97.8 F 04/23/16 11:34 Pulse 75 04/23/16 11:34 Resp 24 04/23/16 11:34 BP 124/52 L 04/23/16 11:34 Pulse Ox 92 04/23/16 11:34 Oxygen Pulse Oxygen Saturation 92 O2 Device Room Air Oxygen Flow Rate Fraction of Inspired Oxygen ( FIO2) Intake & Output 04/20/16 04/21/16 04/22/16 04/23/16 23:59 23:59 23:59 23:59 Intake Total 350 1091 1117 Balance 350 1091 1117 Patient's weight 43.817 kg 44.934 kg 45.501 kg General: Alert, Weakness, Fatigue HEENT: Normal, PERRLA, EOMI, Anicteric Sclera Neck: Non-tender, Limited range of motion Lymphatics: Normal Respiratory: Diminished, Rhonchi Cardiovascular: Regular rate, Normal S1, Normal S2, Murmurs GI: Normal bowel sounds, Soft, Non tender, No hepatospenomegaly, No masses Extremities/Musculoskeletal: Clubbing, Cyanosis, DJD Skin: No rashes, No significant lesion Neurological: Cranial nerves 3-12 NL, Somnolent Psych/Mental Status: Agitated, Anxious, Confabulating, Confused, Disoriented Lab/DI/Studies Reviewed: Allergies acetaminophen [From Darvocet-N 100] Allergy (Verified 09/08/14 16:18) Unknown Per [facility] codeine Allergy (Verified 09/08/14 16:18) Unknown Per [facility] Iodinated Contrast Media - IV Dye Allergy (Verified 09/08/14 16:18) Unknown Per [facility] Penicillins Allergy (Verified 09/08/14 16:18) Unknown Per [facility] pravastatin sodium [From Pravachol] Allergy (Verified 09/08/14 16:18) Unknown Per [facility] propoxyphene Allergy (Verified 09/08/14 16:18) Unknown Per [facility] propoxyphene napsylate [From Darvocet-N 100] Allergy (Verified 09/08/14 16:18) Unknown Per [facility] MAR quinapril Allergy (Verified 09/08/14 16:18) Unknown Per [facility] Sulfa (Sulfonamide Antibiotics) Allergy (Verified 09/08/14 16:18) Unknown Per [facility] MAR 04/23/16 05:25 04/23/16 05:25 Last Vital Signs Temp 97.8 F 04/23/16 11:34 Pulse 75 04/23/16 11:34 Resp 24 04/23/16 11:34 BP 124/52 L 04/23/16 11:34 Pulse Ox 92 04/23/16 11:34 - Assessment (1) Bilateral cellulitis of lower leg Acute L03.116 - CELLULITIS OF LEFT LOWER LIMB; L03.115 - CELLULITIS OF RIGHT LOWER LIMB Comment/Plan: Continue IV antibiotics in the form of vancomycin and clindamycin. Seen by wound care, also seen by surgery-no indications for surgical debridement (2) Skin ulcers of both feet Resolved L97.519 - NON-PRS CHRONIC ULCER OTH PRT RIGHT FOOT W UNSP SEVERITY; L97.529 - NON-PRESSURE CHRONIC ULCER OTH PRT LEFT FOOT W UNSP SEVERITY Comment /Plan: Continue local wound care and nutritional support (3) Dehydration Acute E86.0 - DEHYDRATION Comment/Plan: Continue IV hydration in the form of D5 half normal saline will be provided. (4) Dementia Chronic F03.90 - UNSPECIFIED DEMENTIA WITHOUT BEHAVIORAL DISTURBANCE Qualifiers: Dementia type: Alzheimer's disease Alzheimer's disease onset: late-onset Dementia behavioral disturbance: with behavioral disturbance Qualified Code(s) : G30.1 - Alzheimer's disease with late onset; F02.81 - Dementia in other diseases classified elsewhere with behavioral disturbance Comment/Plan: Continue medications and supportive care. (5) Hypernatremia Acute E87.0 - HYPEROSMOLALITY AND HYPERNATREMIA Comment/Plan: Improved. Continue IV fluids (6) Lactic acidosis Resolved E87.2 - ACIDOSIS Comment/Plan: Secondary to #1., continue IV fluids and IV antibiotics (7) Peripheral vascular disease Chronic I73.9 - PERIPHERAL VASCULAR DISEASE, UNSPECIFIED Comment/Plan: Continue aspirin (8) Failure to thrive Chronic [id number] - Qualifiers: Failure to thrive age range: in adult Qualified Code(s): R62.7 - Adult failure to thrive Comment/Plan: Continue nutritional support. (9) Senile debility Chronic R54 - AGE-RELATED PHYSICAL DEBILITY Comment/Plan: Assist with ADLs and with transfers. Case Care Discussed with: Patient, Consultants, Family, Nursing Staff, Forest Fire Fighter Education/Counseling Given To: Patient Education/Counseling Given Regarding: Diagnosis, Treatment, Prognosis, Follow Up Total Time: 45 min . Critical Care: No Code: 06851 (12+)
[2016-04-23] MEDS ORDERED: RISPERIDONE MICROSPHERES 25 MG IM SCH (14:00)
[2016-04-23] MEDS ORDERED: Medication Special Instructions SCH (14:00)
[2016-04-23] MEDS: ENOXAPARIN 40 MG/0.4 ML PFS SQ SCH (18:01)
[2016-04-23] MEDS: DONEPEZIL HCL 10 MG TAB PO SCH (19:45)
[2016-04-23] MEDS: DOCUSATE-SENNA CONCENTRATE TAB PO SCH (19:45)
[2016-04-24] MEDS: REGULAR INSULIN 100 UNITS/ML - 3 ML VIAL SQ SCH ×5 (00:22→23:37)
[2016-04-24] MEDS: D5W-1/2NS 1,000 ML IV SCH ×2 (01:14→17:09)
[2016-04-24] MEDS: Clindamycin 600 mg/D5W 50 ml 600 MG/50 ML IVB IV SCH ×4 (04:15→23:34)
[2016-04-24] MEDS: ARTIFICIAL TEARS OPH SOLN 15 ML OU SCH ×3 (04:15→21:53)
[2016-04-24 07:09] LABS: MPV 8.9 fL (7.4-10.4)
[2016-04-24 07:21] LABS: BLOOD UREA NITROGEN 9 MG/DL (7-17); CALCIUM 8.4 MG/DL (8.4-10.2); CALCULATED OSMOLALITY 272 MOs/Kg (270-290); CHLORIDE 108 mEq/L (98-107); GLUCOSE 102 mg/dL (70-99); SODIUM LEVEL 142 mEq/L (137-146)
--- NOTE | 2016-04-24 08:20 | PCM.SURGRO ---
- Subjective Patient: Reports: No new complaints - Objective / Physical Exam Vital Signs: Temperature: 98.3 F (04/24/16 06:00) HR: 58 (04/24/16 06:00)RR: 20 (04/24/16 06: 00) BP: 134/57 (04/24/16 06:00)Pulse Ox: 100 (04/24/16 06:00) General: No acute distress Respiratory: Diminished, Rhonchi (few) Cardiovascular: Regular rate and rhythm, Murmurs Gastrointestinal: Soft. negative: Distended Extremities: Other (erythema decreased. Some drainage from ulcers). negative: Tenderness Skin: Ulceration (bilat feet) Laboratory/Diagnostics Reviewed: 04/24/16 05:45 04/24/16 05:45 Laboratory Results - last 24 hr 04/23/16 04/23/16 04/23/16 11:34 15:20 16:52 WBC RBC Hgb Hct MCV MCH MCHC RDW Plt Count MPV Sodium Potassium Chloride Carbon Dioxide Anion Gap BUN Creatinine Estimated GFR (MDRD) Glucose POC Capillary Glucose 118 H 168 H Calculated Osmolality Calcium Vancomycin Trough 6.8 04/23/16 04/24/16 04/24/16 23:27 05:45 05:45 WBC 4.6 RBC 3.57 L Hgb 10.5 L Hct 31.3 L MCV 88 MCH 29.4 MCHC 33.5 RDW 13.6 Plt Count 135 MPV 8.9 Sodium 142 Potassium 3.6 Chloride 108 H Carbon Dioxide 26 Anion Gap 12 BUN 9 Creatinine 0.60 Estimated GFR (MDRD) > 60 Glucose 102 H POC Capillary Glucose 142 H Calculated Osmolality 272 Calcium 8.4 Vancomycin Trough 04/24/16 05:47 WBC RBC Hgb Hct MCV MCH MCHC RDW Plt Count MPV Sodium Potassium Chloride Carbon Dioxide Anion Gap BUN Creatinine Estimated GFR (MDRD) Glucose POC Capillary Glucose 112 H Calculated Osmolality Calcium Vancomycin Trough - Assessment and Plan (1) Skin ulcers of both feet Chronic L97.519 - NON-PRS CHRONIC ULCER OTH PRT RIGHT FOOT W UNSP SEVERITY; L97.529 - NON-PRESSURE CHRONIC ULCER OTH PRT LEFT FOOT W UNSP SEVERITY Present on Admission: Yes (2) Bilateral cellulitis of lower leg Acute L03.116 - CELLULITIS OF LEFT LOWER LIMB; L03.115 - CELLULITIS OF RIGHT LOWER LIMB Present on Admission: Yes (3) Failure of outpatient treatment Acute Z78.9 - OTHER SPECIFIED HEALTH STATUS Present on Admission: Yes (4) Dementia Chronic F03.90 - UNSPECIFIED DEMENTIA WITHOUT BEHAVIORAL DISTURBANCE Present on Admission: Yes Alzheimer's disease late-onset with behavioral disturbance G30.1 - Alzheimer's disease with late onset; F02.81 - Dementia in other diseases classified elsewhere with behavioral disturbance (5) Diabetes mellitus type II, uncontrolled Chronic E11.65 - TYPE 2 DIABETES MELLITUS WITH HYPERGLYCEMIA Present on Admission: Yes (6) Coronary artery disease Chronic I25.10 - ATHSCL HEART DISEASE OF [place] CORONARY ARTERY W/O ANG PCTRS Present on Admission: Yes [place] artery [place] heart without angina I25.10 - Atherosclerotic heart disease of [place] coronary artery without angina pectoris (7) Peripheral vascular disease Chronic I73.9 - PERIPHERAL VASCULAR DISEASE, UNSPECIFIED Present on Admission: Yes Plan: Cont with IV antibiotics and enzymatic debridement.
[2016-04-24] MEDS: MEMANTINE 5 MG TAB PO SCH ×2 (08:48→21:54)
[2016-04-24] MEDS: ISOSORBIDE MONONITRATE 30 MG TAB PO SCH (08:49)
[2016-04-24] MEDS: COLLAGENASE OINTMENT 30 GM TUBE TOP SCH (11:49)
[2016-04-24] MEDS: DIVALPROEX SODIUM 125 MG CAP PO SCH ×2 (11:57→21:54)
[2016-04-24] MEDS: FERROUS SULFATE 324 MG TAB PO SCH ×2 (11:59→17:09)
[2016-04-24] MEDS: POTASSIUM CHLORIDE 10 MEQ TABLET PO SCH (13:12)
[2016-04-24 14:20] VITALS: TEMP 99.1
[2016-04-24] MEDS ORDERED: Medication Special Instructions SCH (16:00)
[2016-04-24] MEDS: ENOXAPARIN 40 MG/0.4 ML PFS SQ SCH (17:09)
--- NOTE | 2016-04-24 20:05 | GENMEDPROG ---
Subjective Note: Patient in bed responsive and follows commands disoriented and confabulatory. P.o. intake better joint pain controlled. No behavior problems related to underlying dementia no anger agitation or hostility. P.o. intake better. Joint pain controlled. Notes Reviewed: Yes: Events from last night noted and discussed with Clinical Staff Current Medication List: Reviewed Currently: Reports: Cough, Reflux Sx DVT Prophylaxis: Yes - Physical Examination Vital Signs and I&O: Last Vital Signs Temp 98.9 F 04/24/16 18:00 Pulse 75 04/24/16 18:00 Resp 18 04/24/16 18:00 BP 147/65 04/24/16 18:00 Pulse Ox 95 04/24/16 18:00 Oxygen Pulse Oxygen Saturation 95 O2 Device Room Air Oxygen Flow Rate Fraction of Inspired Oxygen ( FIO2) Intake & Output 04/21/16 04/22/16 04/23/16 04/24/16 23:59 23:59 23:59 23:59 Intake Total 350 1091 2547 2494 Balance 350 1091 2547 2494 Patient's weight 43.817 kg 44.934 kg 45.501 kg 46.947 kg General: No acute distress HEENT: Normal, PERRLA, EOMI, Anicteric Sclera Neck: Non-tender, Limited range of motion Lymphatics: Normal Respiratory: Diminished, Rhonchi (few) Cardiovascular: Regular rate and rhythm, Normal S1, Normal S2, Murmurs GI: Normal bowel sounds, Soft, Non tender, No hepatospenomegaly, No masses Extremities/Musculoskeletal: Cyanosis, DJD, Other (erythema decreased. Some drainage from ulcers). negative: Tenderness Skin: No rashes, No significant lesion, Ulceration (bilat feet) Neurological: Normal speech, Cranial nerves 3-12 NL Psych/Mental Status: Anxious, Confabulating, Confused, Disoriented - Assessment (1) Bilateral cellulitis of lower leg Acute L03.116 - CELLULITIS OF LEFT LOWER LIMB; L03.115 - CELLULITIS OF RIGHT LOWER LIMB Comment/Plan: Continue IV antibiotics in the form of vancomycin and clindamycin. Seen by wound care, also seen by surgery-no indications for surgical debridement. Overall slowly improving (2) Skin ulcers of both feet Chronic L97.519 - NON-PRS CHRONIC ULCER OTH PRT RIGHT FOOT W UNSP SEVERITY; L97.529 - NON-PRESSURE CHRONIC ULCER OTH PRT LEFT FOOT W UNSP SEVERITY Comment /Plan: Continue local wound care and nutritional support (3) Dehydration Acute E86.0 - DEHYDRATION Comment/Plan: Continue IV hydration in the form of D5 half normal saline will be provided. (4) Dementia Chronic F03.90 - UNSPECIFIED DEMENTIA WITHOUT BEHAVIORAL DISTURBANCE Qualifiers: Dementia type: Alzheimer's disease Alzheimer's disease onset: late-onset Dementia behavioral disturbance: with behavioral disturbance Qualified Code(s) : G30.1 - Alzheimer's disease with late onset; F02.81 - Dementia in other diseases classified elsewhere with behavioral disturbance Comment/Plan: Continue medications and supportive care. (5) Hypernatremia Resolved E87.0 - HYPEROSMOLALITY AND HYPERNATREMIA Comment/Plan: Improved. Continue IV fluids (6) Lactic acidosis Resolved E87.2 - ACIDOSIS Comment/Plan: Secondary to #1., continue IV fluids and IV antibiotics (7) Peripheral vascular disease Chronic I73.9 - PERIPHERAL VASCULAR DISEASE, UNSPECIFIED Comment/Plan: Continue aspirin (8) Failure to thrive Chronic [id number] - Qualifiers: Failure to thrive age range: in adult Qualified Code(s): R62.7 - Adult failure to thrive Comment/Plan: Continue nutritional support. (9) Senile debility Chronic R54 - AGE-RELATED PHYSICAL DEBILITY Comment/Plan: Assist with ADLs and with transfers. Case Care Discussed with: Patient, Consultants, Family, Nursing Staff, Press Operator Apprentice, Other Education/Counseling Given To: Patient Education/Counseling Given Regarding: Diagnosis, Treatment, Prognosis, Follow Up Total Time: 45 min. Critical Care: No Code: [id number] (12+)
[2016-04-24] MEDS: DOCUSATE-SENNA CONCENTRATE TAB PO SCH (21:54)
[2016-04-24] MEDS: DONEPEZIL HCL 10 MG TAB PO SCH (21:54)
[2016-04-25] MEDS: ARTIFICIAL TEARS OPH SOLN 15 ML OU SCH ×3 (05:25→21:55)
[2016-04-25] MEDS: Clindamycin 600 mg/D5W 50 ml 600 MG/50 ML IVB IV SCH ×4 (05:26→23:46)
[2016-04-25] MEDS: REGULAR INSULIN 100 UNITS/ML - 3 ML VIAL SQ SCH ×4 (05:26→23:47)
[2016-04-25 05:31] VITALS: BMI 17.4
[2016-04-25 07:33] LABS: MPV 8.7 fL (7.4-10.4)
[2016-04-25 08:04] LABS: BLOOD UREA NITROGEN 6 MG/DL (7-17); CALCIUM 8.3 MG/DL (8.4-10.2); CALCULATED OSMOLALITY 271 MOs/Kg (270-290); CHLORIDE 108 mEq/L (98-107); GLUCOSE 103 mg/dL (70-99); SODIUM LEVEL 142 mEq/L (137-146)
--- NOTE | 2016-04-25 08:39 | GENMEDPROG ---
Subjective Note: Patient in bed sleepy but arousable confused disoriented and confabulatory. No anger agitation or hostility. Joint pain controlled. Notes Reviewed: Yes: Events from last night noted and discussed with Clinical Staff Current Medication List: Reviewed Currently: Reports: Cough, Reflux Sx DVT Prophylaxis: Yes - Physical Examination Vital Signs and I&O: Last Vital Signs Temp 97.4 F L 04/25/16 01:42 Pulse 82 04/25/16 05:29 Resp 18 04/25/16 05:29 BP 151/65 04/25/16 05:29 Pulse Ox 97 04/25/16 05:29 Oxygen Pulse Oxygen Saturation 97 O2 Device Room Air Oxygen Flow Rate Fraction of Inspired Oxygen ( FIO2) Intake & Output 04/22/16 04/23/16 04/24/16 04/25/16 23:59 23:59 23:59 23:59 Intake Total 1091 0401 3504 1043 Balance 1091 9773 2494 1049 Patient's weight 44.934 kg 45.501 kg 46.947 kg 47.372 kg General: Alert, Cooperative, No acute distress HEENT: Normal, PERRLA, EOMI, Anicteric Sclera Neck: Non-tender, Limited range of motion Lymphatics: Normal Respiratory: Diminished, Rhonchi (few) Cardiovascular: Regular rate and rhythm, Normal S1, Normal S2, Murmurs GI: Normal bowel sounds, Soft, Non tender, No hepatospenomegaly, No masses Extremities/Musculoskeletal: Cyanosis, DJD, Other (erythema decreased. Some drainage from ulcers). negative: Tenderness Skin: No rashes, No significant lesion, Ulceration (bilat feet) Neurological: Normal speech, Cranial nerves 3-12 NL Psych/Mental Status: Anxious, Confabulating, Confused, Disoriented Lab/DI/Studies Reviewed: Allergies acetaminophen [From Darvocet-N 100] Allergy (Verified 09/08/14 16:18) Unknown Per [facility] codeine Allergy (Verified 09/08/14 16:18) Unknown Per [facility] Iodinated Contrast Media - IV Dye Allergy (Verified 09/08/14 16:18) Unknown Per [facility] Penicillins Allergy (Verified 09/08/14 16:18) Unknown Per [facility] pravastatin sodium [From Pravachol] Allergy (Verified 09/08/14 16:18) Unknown Per [facility] propoxyphene Allergy (Verified 09/08/14 16:18) Unknown Per [facility] propoxyphene napsylate [From Darvocet-N 100] Allergy (Verified 09/08/14 16:18) Unknown Per [facility] quinapril Allergy (Verified 09/08/14 16:18) Unknown Per [facility] Sulfa (Sulfonamide Antibiotics) Allergy (Verified 09/08/14 16:18) Unknown Per [facility] Abnormal Lab Results 04/24/16 04/24/16 04/24/16 11:26 16:32 23:36 RBC Hgb Hct Chloride BUN Creatinine Glucose POC Capillary Glucose 151 H 135 H 153 H Calcium 04/25/16 04/25/16 04/25/16 05:23 06:27 06:27 RBC 3.20 L Hgb 9.3 L D Hct 27.8 L Chloride 108 H BUN 6 L Creatinine 0.50 L Glucose 103 H POC Capillary Glucose 109 H Calcium 8.3 L 04/25/16 06:27 04/25/16 06:27 Last Vital Signs Temp 97.4 F L 04/25/16 01:42 Pulse 82 04/25/16 05:29 Resp 18 04/25/16 05:29 BP 151/65 04/25/16 05:29 Pulse Ox 97 04/25/16 05:29 - Assessment (1) Bilateral cellulitis of lower leg Acute L03.116 - CELLULITIS OF LEFT LOWER LIMB; L03.115 - CELLULITIS OF RIGHT LOWER LIMB Comment/Plan: Continue IV antibiotics in the form of vancomycin and clindamycin. Seen by wound care, also seen by surgery-no indications for surgical debridement. Overall slowly improving (2) Skin ulcers of both feet Chronic L97.519 - NON-PRS CHRONIC ULCER OTH PRT RIGHT FOOT W UNSP SEVERITY; L97.529 - NON-PRESSURE CHRONIC ULCER OTH PRT LEFT FOOT W UNSP SEVERITY Comment /Plan: Continue local wound care and nutritional support (3) Dementia Chronic F03.90 - UNSPECIFIED DEMENTIA WITHOUT BEHAVIORAL DISTURBANCE Qualifiers: Dementia type: Alzheimer's disease Alzheimer's disease onset: late-onset Dementia behavioral disturbance: with behavioral disturbance Qualified Code(s) : G30.1 - Alzheimer's disease with late onset; F02.81 - Dementia in other diseases classified elsewhere with behavioral disturbance Comment/Plan: Continue medications and supportive care. (4) Dehydration Acute E86.0 - DEHYDRATION Comment/Plan: Continue IV hydration in the form of D5 half normal saline will be provided. (5) Hypernatremia Resolved E87.0 - HYPEROSMOLALITY AND HYPERNATREMIA Comment/Plan: Improved. Continue IV fluids (6) Peripheral vascular disease Chronic I73.9 - PERIPHERAL VASCULAR DISEASE, UNSPECIFIED Comment/Plan: Continue aspirin (7) Failure to thrive Chronic [id number] - Qualifiers: Failure to thrive age range: in adult Qualified Code(s): R62.7 - Adult failure to thrive Comment/Plan: Continue nutritional support. 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 (9) Lactic acidosis Resolved E87.2 - ACIDOSIS Comment/Plan: Secondary to #1., continue IV fluids and IV antibiotics Case Care Discussed with: Patient, Consultants, Family, Nursing Staff, Public Health Advisor Education/Counseling Given To: Patient Education/Counseling Given Regarding: Diagnosis, Treatment, Prognosis, Follow Up Total Time: 40 min . Critical Care: No Code: 12898 (12+)
[2016-04-25] MEDS: FENTANYL 12 MCG PATCH TOP SCH (09:28)
[2016-04-25] MEDS: MEMANTINE 5 MG TAB PO SCH ×2 (09:28→21:57)
[2016-04-25] MEDS: COLLAGENASE OINTMENT 30 GM TUBE TOP SCH (09:29)
[2016-04-25] MEDS: D5W-1/2NS 1,000 ML IV SCH ×3 (09:30→22:13)
[2016-04-25] MEDS: ISOSORBIDE MONONITRATE 30 MG TAB PO SCH (09:39)
[2016-04-25] MEDS: DIVALPROEX SODIUM 125 MG CAP PO SCH ×2 (12:24→21:56)
[2016-04-25] MEDS: FERROUS SULFATE 324 MG TAB PO SCH ×2 (12:24→17:28)
[2016-04-25] MEDS: POTASSIUM CHLORIDE 10 MEQ TABLET PO SCH (12:25)
[2016-04-25] MEDS: ENOXAPARIN 40 MG/0.4 ML PFS SQ SCH (17:27)
[2016-04-25] MEDS: DONEPEZIL HCL 10 MG TAB PO SCH (21:54)
[2016-04-25] MEDS: DOCUSATE-SENNA CONCENTRATE TAB PO SCH (21:58)
[2016-04-26] MEDS: Clindamycin 600 mg/D5W 50 ml 600 MG/50 ML IVB IV SCH ×2 (05:11→12:36)
[2016-04-26] MEDS: ARTIFICIAL TEARS OPH SOLN 15 ML OU SCH (05:11)
[2016-04-26] MEDS: REGULAR INSULIN 100 UNITS/ML - 3 ML VIAL SQ SCH (05:59)
[2016-04-26 10:06] VITALS: BP 141/64; TEMP 98.7
[2016-04-26] MEDS: ISOSORBIDE MONONITRATE 30 MG TAB PO SCH (10:24)
[2016-04-26] MEDS: COLLAGENASE OINTMENT 30 GM TUBE TOP SCH (10:26)
[2016-04-26] MEDS: MEMANTINE 5 MG TAB PO SCH (10:26)
[2016-04-26 10:29] VITALS: PULSE 72
--- NOTE | 2016-04-26 12:02 | PCM.DCS92 ---
- Final/Secondary Discharge Diagnosis (1) Bilateral cellulitis of lower leg Acute L03.116 - CELLULITIS OF LEFT LOWER LIMB; L03.115 - CELLULITIS OF RIGHT LOWER LIMB Present on Admission: Yes Comment: Continue finish p.o. antibiotics (2) Skin ulcers of both feet Chronic L97.519 - NON-PRS CHRONIC ULCER OTH PRT RIGHT FOOT W UNSP SEVERITY; L97.529 - NON-PRESSURE CHRONIC ULCER OTH PRT LEFT FOOT W UNSP SEVERITY Present on Admission: Yes Comment: Continue local wound care and nutritional support (3) Dementia Chronic F03.90 - UNSPECIFIED DEMENTIA WITHOUT BEHAVIORAL DISTURBANCE Present on Admission: Yes Alzheimer's disease late-onset with behavioral disturbance G30.1 - Alzheimer's disease with late onset; F02.81 - Dementia in other diseases classified elsewhere with behavioral disturbance Comment: Continue medications and supportive care. (4) Dehydration Resolved E86.0 - DEHYDRATION Present on Admission: Yes Comment: Continue IV hydration in the form of D5 half normal saline will be provided. (5) Hypernatremia Resolved E87.0 - HYPEROSMOLALITY AND HYPERNATREMIA Present on Admission: Yes Comment: Improved. Continue IV fluids (6) Peripheral vascular disease Chronic I73.9 - PERIPHERAL VASCULAR DISEASE, UNSPECIFIED Present on Admission: Yes Comment: Continue aspirin (7) Failure to thrive Chronic [id number] - Present on Admission: Yes in adult R62.7 - Adult failure to thrive Comment: Continue nutritional support. 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 (9) Lactic acidosis Resolved E87.2 - ACIDOSIS Present on Admission: Yes Comment: Secondary to #1., continue IV fluids and IV antibiotics Discharge Disposition: [facility] Discharge Condition: Improved Cognitive Discharge Status: Unable to communicate needs, Altered Mental Status, Cognitive deficits prevent decision making for safety. Fuctional Discharge Status: Wheelchair Assistance, Fall Risk, Deconditioning Physician Follow up/Referrals: Rafa Spring MD [Primary Care Provider] - One Week Home Medications / New Prescriptions: New Lorazepam [Ativan] 1 mg PO HS #90 tab Clindamycin [Cleocin] 450 mg PO TIDAC #21 capsule Lactobacillus Acidophilus [Florajen] 460 mg PO BID #60 capsule Cephalexin Monohydrate [Keflex] 500 mg PO Q6H #40 cap Mirtazapine 45 mg PO HS #30 tab Acetaminophen [Tylenol] 650 mg PO QID #120 tablet Continue Sennosides/Docusate Sodium [Senokot-S Tablet] 2 tabs PO HS Isosorbide Mononitrate [Imdur] 30 mg PO DAILY Bisoprolol Fumarate [Zebeta] 5 mg PO QHS Bisacodyl [Dulcolax] 10 mg MN DAILY PRN PRN Reason: Constipation House Supplement 1 each PO HS Potassium Chloride [Klor-Con 10] 30 meq PO DAILY Donepezil HCl [Aricept] 10 mg PO QHS Collagenase Clostridium Hist. [Santyl] 1 [place] TOP DAILY Aspirin (Enteric Coated) [Ecotrin] 81 mg PO DAILY Risperidone Microspheres [Risperdal Consta] 25 mg IM [id number] Lactulose 30 ml PO DAILY PRN PRN Reason: Constipation Ergocalciferol (Vitamin D2) [Vitamin D] 50,000 units PO QMONTH Ferrous Sulfate [Iron] 325 mg PO BID Propylene Glycol [Systane Balance] 1 drop OU TID CYANOCOBALAMIN (Vitamin B-12) [Vitamin B-12] 1,000 mcg IM QMONTH Divalproex Sodium [Depakote Sprinkle] 375 mg PO 1200 Ativan Gel 0.5mg/Ml 0.5 mg TOP Q8H PRN PRN Reason: AGITATION Losartan Potassium 25 mg PO DAILY Divalproex Sodium [Depakote Sprinkle] 250 mg PO QHS Fentanyl 12 mcg TOP Q72H #20 patch.td72 Hydrocodone Bit/Acetaminophen [[place] 5-325 Tablet] 1 tab PO Q6H PRN #120 tablet PRN Reason: Pain Discontinued Mirtazapine 15 mg PO QHS Ativan Solution 2mg/Ml 2 mg TOP QHS Moxifloxacin HCl [Avelox] 400 mg PO DAILY Acetaminophen [Acephen] 650 mg MN Q4H PRN PRN Reason: Mild Pain Or Fever No Action Nitroglycerin [Nitrostat] 0.4 mg SL Q5MX3 PRN PRN Reason: Chest Pain Or Discomfort Memantine HCl [Namenda Xr] 14 mg PO QHS O2 Device: Room Air Diet at Discharge: Regular, High Fiber Activity: Limited Call Office For: Fever over 101 F Discontinue use of:: Alcohol, All Illegal Substances, All Types of Tobacco - DC Summary Notes Hospital Course Note:: Discharge summary on patient named BRIDGET CH admitted to [facility] on 04/21/16 by Rafa Spring MD. Date of discharge is. Patient was initially brought to emergency room on April 21 for evaluation of feet ulcers with cellulitis. Patient has developed ulcers on both feet with signs of infection and while did detention received p.o. antibiotic in the form of Avelox. Despite treatment this medication there was no symptomatic improvement, she has developed worsening swelling warmth redness and more discharge from feet ulcers and subsequent transferred to emergency room for evaluation. Please refer the admission for further details. Patient is admitted to monitor medical bed treatment of IV antibiotics was instituted, during hospital stay she has received IV clindamycin and IV vancomycin. She was seen consultation by surgeon and there was no indications for any surgical intervention. She was also seen consultation by wound care and local wound care was provided. Overall patient has responded to applied therapy very well, by the time of discharge redness has resolved and there was no further discharge from the ulcers. During initial hospital stay there was fair amount of behavior problems related to underlying dementia with periods of agitation anxiety and anger this has slowly resolved and throughout remaining part of hospitalization patient behavior was much better. Patient and daughter were kept abreast on clinical progression and further treatment plan. X-rays of both feet showed no signs of osteomyelitis. She was mildly anemic, renal function has remained normal. It was felt that by April 26 she has reached maximum benefit of inpatient therapy and in clinically improved condition she has been discharged [facility]. Patient is to complete 10 more days of p.o. antibiotics. Local wound care will be provided based on surgical wound care instructions. Total Time: 45 min. Code: 98378 (>30min.) - Physical Exam Vital Signs: Last Vital Signs Temp 98.7 F 04/26/16 09:45 Pulse 72 04/26/16 10:24 Resp 18 04/26/16 09:45 BP 141/64 04/26/16 09:45 Pulse Ox 99 04/26/16 09:45 Oxygen Pulse Oxygen Saturation 99 O2 Device Room Air Oxygen Flow Rate Fraction of Inspired Oxygen ( FIO2) Constitutional: No apparent distress, Confused Oriented to: Person, Unable to Test - HEENT Head: Normal. negative: Laceration, Swelling Eye: Normal. negative: Edema, Scleral Icterus Oropharynx: Normal ENT EAC: Normal TMJ: Normal Nose: No Symptoms Reported - Respiratory/Cardiovascular Respiratory: Diminished, Rhonchi (few) Cardiovascular: Normal, Systolic murmur - GI Auscultation: Normal Palpation: Normal Tenderness: Non tender - Musculoskeletal Back: Thoracic Step-off Extremities: Other (ulcerationa and erythema on lateral aspect of both feet.). negative: Edema, Pedal Pulse - Integumentary Skin: Warm, Dry Lymphatics: Normal - Neurologic Memory Impaired: Short-term, Long-term Motor Function: Abnormal Cranial Nerve: Normal Cerebellar: Unable to Test Mood Description: Anxious, Agitated, Depressed Thought: Delusions, Other Perception: Other - Other Exam Other Exam Findings: Allergies acetaminophen [From Darvocet-N 100] Allergy (Verified 09/08/14 16:18) Unknown Per [facility] codeine Allergy (Verified 09/08/14 16:18) Unknown Per [facility] Iodinated Contrast Media - IV Dye Allergy (Verified 09/08/14 16:18) Unknown Per [facility] Penicillins Allergy (Verified 09/08/14 16:18) Unknown Per [facility] pravastatin sodium [From Pravachol] Allergy (Verified 09/08/14 16:18) Unknown Per [facility] propoxyphene Allergy (Verified 09/08/14 16:18) Unknown Per [facility] propoxyphene napsylate [From Darvocet-N 100] Allergy (Verified 09/08/14 16:18) Unknown Per [facility] quinapril Allergy (Verified 09/08/14 16:18) Unknown Per [facility] Sulfa (Sulfonamide Antibiotics) Allergy (Verified 09/08/14 16:18) Unknown Per [facility] Discharge Home Medication List Bisacodyl [Dulcolax] 10 mg MN DAILY PRN 07/07/14 [History Confirmed 04/21/16] Bisoprolol Fumarate [Zebeta] 5 mg PO QHS 07/07/14 [History Confirmed 04/21/16] House Supplement 1 each PO HS 07/07/14 [History Confirmed 04/21/16] Isosorbide Mononitrate [Imdur] 30 mg PO DAILY 07/07/14 [History Confirmed ] Nitroglycerin [Nitrostat] 0.4 mg SL Q5MX3 PRN 07/07/14 [History Confirmed ] Sennosides/Docusate Sodium [Senokot-S Tablet] 2 tabs PO HS 07/07/14 [History Confirmed 04/21/16] Collagenase Clostridium Hist. [Santyl] 1 [place] TOP DAILY 05/16/15 [History Confirmed 04/21/16] Donepezil HCl [Aricept] 10 mg PO QHS 05/16/15 [History Confirmed 04/21/16] Memantine HCl [Namenda Xr] 14 mg PO QHS 05/16/15 [History Confirmed 04/21/16] Potassium Chloride [Klor-Con 10] 30 meq PO DAILY 05/16/15 [History Confirmed 08/30] Aspirin (Enteric Coated) [Ecotrin] 81 mg PO DAILY 04/21/16 [History Confirmed ] Ativan Gel 0.5mg/Ml 0.5 mg TOP Q8H PRN 04/21/16 [History Confirmed 04/21/16] CYANOCOBALAMIN (Vitamin B-12) [Vitamin B-12] 1,000 mcg IM QMONTH 04/21/16 [ History Confirmed 04/21/16] Divalproex Sodium [Depakote Sprinkle] 250 mg PO QHS 04/21/16 [History Confirmed 04/21/16] Divalproex Sodium [Depakote Sprinkle] 375 mg PO 1200 04/21/16 [History Confirmed 04/21/16] Ergocalciferol (Vitamin D2) [Vitamin D] 50,000 units PO QMONTH 04/21/16 [ History Confirmed 04/21/16] Ferrous Sulfate [Iron] 325 mg PO BID 04/21/16 [History Confirmed 04/21/16] Lactulose 30 ml PO DAILY PRN 04/21/16 [History Confirmed 04/21/16] Losartan Potassium 25 mg PO DAILY 04/21/16 [History Confirmed 04/21/16] Propylene Glycol [Systane Balance] 1 drop OU TID 04/21/16 [History Confirmed 08/30] Risperidone Microspheres [Risperdal Consta] 25 mg IM .[id number] 04/21/16 [History Confirmed 04/21/16] Acetaminophen [Tylenol] 650 mg PO QID #120 tablet 04/26/16 [Rx] Cephalexin Monohydrate [Keflex] 500 mg PO Q6H #40 cap 04/26/16 [Rx] Clindamycin [Cleocin] 450 mg PO TIDAC #21 capsule 04/26/16 [Rx] Fentanyl 12 mcg TOP Q72H #20 patch.td72 04/26/16 [Rx] Hydrocodone Bit/Acetaminophen [[place] 5-325 Tablet] 1 tab PO Q6H PRN #120 tablet 04/26/16 [Rx] Lactobacillus Acidophilus [Florajen] 460 mg PO BID #60 capsule 04/26/16 [Rx] Lorazepam [Ativan] 1 mg PO HS #90 tab 04/26/16 [Rx] Mirtazapine 45 mg PO HS #30 tab 04/26/16 [Rx] New Discharge Medications (Rx) Acetaminophen [Tylenol] 650 mg PO QID #120 tablet 04/26/16 [Rx] Cephalexin Monohydrate [Keflex] 500 mg PO Q6H #40 cap 04/26/16 [Rx] Clindamycin [Cleocin] 450 mg PO TIDAC #21 capsule 04/26/16 [Rx] Fentanyl 12 mcg TOP Q72H #20 patch.td72 04/26/16 [Rx] Hydrocodone Bit/Acetaminophen [[place] 5-325 Tablet] 1 tab PO Q6H PRN #120 tablet 04/26/16 [Rx] Lactobacillus Acidophilus [Florajen] 460 mg PO BID #60 capsule 04/26/16 [Rx] Lorazepam [Ativan] 1 mg PO HS #90 tab 04/26/16 [Rx] Mirtazapine 45 mg PO HS #30 tab 04/26/16 [Rx] Home Medications Bisacodyl [Dulcolax] 10 mg MN DAILY PRN 07/07/14 Bisoprolol Fumarate [Zebeta] 5 mg PO QHS 07/07/14 House Supplement 1 each PO HS 07/07/14 Isosorbide Mononitrate [Imdur] 30 mg PO DAILY 07/07/14 Nitroglycerin [Nitrostat] 0.4 mg SL Q5MX3 PRN 07/07/14 Sennosides/Docusate Sodium [Senokot-S Tablet] 2 tabs PO HS 07/07/14 Collagenase Clostridium Hist. [Santyl] 1 [place] TOP DAILY 05/16/15 Donepezil HCl [Aricept] 10 mg PO QHS 05/16/15 Memantine HCl [Namenda Xr] 14 mg PO QHS 05/16/15 Potassium Chloride [Klor-Con 10] 30 meq PO DAILY 05/16/15 Aspirin (Enteric Coated) [Ecotrin] 81 mg PO DAILY 04/21/16 Ativan Gel 0.5mg/Ml 0.5 mg TOP Q8H PRN 04/21/16 CYANOCOBALAMIN (Vitamin B-12) [Vitamin B-12] 1,000 mcg IM QMONTH 04/21/16 Divalproex Sodium [Depakote Sprinkle] 250 mg PO QHS 04/21/16 Divalproex Sodium [Depakote Sprinkle] 375 mg PO 1200 04/21/16 Ergocalciferol (Vitamin D2) [Vitamin D] 50,000 units PO QMONTH 04/21/16 Ferrous Sulfate [Iron] 325 mg PO BID 04/21/16 Lactulose 30 ml PO DAILY PRN 04/21/16 Losartan Potassium 25 mg PO DAILY 04/21/16 Propylene Glycol [Systane Balance] 1 drop OU TID 04/21/16 Risperidone Microspheres [Risperdal Consta] 25 mg IM .[id number] 04/21/16 Acetaminophen [Tylenol] 650 mg PO QID #120 tablet 04/26/16 Cephalexin Monohydrate [Keflex] 500 mg PO Q6H #40 cap 04/26/16 Clindamycin [Cleocin] 450 mg PO TIDAC #21 capsule 04/26/16 Fentanyl 12 mcg TOP Q72H #20 patch.td72 04/26/16 Hydrocodone Bit/Acetaminophen [[place] 5-325 Tablet] 1 tab PO Q6H PRN #120 tablet 04/26/16 Lactobacillus Acidophilus [Florajen] 460 mg PO BID #60 capsule 04/26/16 Lorazepam [Ativan] 1 mg PO HS #90 tab 04/26/16 Mirtazapine 45 mg PO HS #30 tab 04/26/16 04/25/16 06:27 04/25/16 06:27 Last Vital Signs Temp 98.7 F 04/26/16 09:45 Pulse 72 04/26/16 10:24 Resp 18 04/26/16 09:45 BP 141/64 04/26/16 09:45 Pulse Ox 99 04/26/16 09:45 Microbiology 04/21/16 15:13 Urine - In/Out Catheter Urine Culture - Final No growth <10,00O CFU/ml
[2016-05-03] MEDS ORDERED: ERGOCALCIFEROL (VITAMIN D2) 50000 UNITS CAP PO SCH (12:00)
[2016-05-13] MEDS ORDERED: CYANOCOBALAMIN 1000 MCG/ML VIAL IM SCH (09:00)
== END 2016-04-26 14:14 | DRG 603 ==
LOC: ED 13:28 → MPS3 16:57
PROVIDERS: ADMIT Internal Medicine; ATTEND Internal Medicine
DX: L03.116 Cellulitis of left lower limb (principal); E87.0 Hyperosmolality and hypernatremia; E87.2 Acidosis; F02.81 Dementia in other diseases classified elsewhere, unspecified severity, with behavioral disturbance; L97.529 Non-pressure chronic ulcer of other part of left foot with unspecified severity; L97.519 Non-pressure chronic ulcer of other part of right foot with unspecified severity; L03.115 Cellulitis of right lower limb; G30.1 Alzheimer's disease with late onset; E86.0 Dehydration; R62.7 Adult failure to thrive; R54 Age-related physical debility; I73.9 Peripheral vascular disease, unspecified; I12.9 Hypertensive chronic kidney disease with stage 1 through stage 4 chronic kidney disease, or unspecified chronic kidney disease; N18.9 Chronic kidney disease, unspecified; I25.10 Atherosclerotic heart disease of native coronary artery without angina pectoris; K21.9 Gastro-esophageal reflux disease without esophagitis; M19.90 Unspecified osteoarthritis, unspecified site; E11.65 Type 2 diabetes mellitus with hyperglycemia; F32.9 Major depressive disorder, single episode, unspecified; Z88.6 Allergy status to analgesic agent; Z99.3 Dependence on wheelchair; Z86.73 Personal history of transient ischemic attack (TIA), and cerebral infarction without residual deficits; Z87.440 Personal history of urinary (tract) infections; Z88.5 Allergy status to narcotic agent; Z88.0 Allergy status to penicillin; Z88.8 Allergy status to other drugs, medicaments and biological substances; Z88.2 Allergy status to sulfonamides; Z91.041 Radiographic dye allergy status; Z79.82 Long term (current) use of aspirin
CPT/HCPCS: 36415; 71010; 80048; 80053; 80164; 80202; 81001; 82962; 83605; 83735; 84443; 84484; 85025; 85027; 85610; 85730; 87040; 87086; 93005; 96365; 96372; 97161; 99284; J1650; J2060; J3370; J3490; J7070